=== PATIENT | female | born 1975 | race American Indian/Alaskan Native ===

== ENCOUNTER 2025-03-23 06:20 | Day surgery (SDC) | payer OTHER ==
[2025-03-20 10:49] LABS: BASOPHILS # (AUTO) 0.1 X10'3 (0-0.2); BASOPHILS % (AUTO) 0.8 % (0-1); EOSINOPHILS # (AUTO) 0.3 X10'3 (0-0.9); EOSINOPHILS % (AUTO) 3.7 % (0-6); LYMPHOCYTES # (AUTO) 2.5 X10'3 (1.1-4.8); LYMPHOCYTES % (AUTO) 30.7 % (21-51); MEAN CORPUSCULAR HEMOGLOBIN 29.9 PG (27.0-31.0); MEAN CORPUSCULAR HGB CONC 33.5 g/dL (33.0-36.5); MEAN CORPUSCULAR VOLUME 89.4 FL (78-98); MEAN PLATELET VOLUME 8.4 FL (7.4-10.4); MONOCYTES # (AUTO) 0.4 X10'3 (0-0.9); MONOCYTES % (AUTO) 4.8 % (2-12); NEUTROPHILS # (AUTO) 4.9 X10'3 (1.8-7.7); PRE OP HEMATOCRIT 40.9 % (35.0-45.0); PRE OP HEMOGLOBIN 13.7 g/dL (12.0-16.0); PRE OP PLATELET COUNT 264 X10'3 (140-440); PRE OP WHITE BLOOD COUNT 8.2 10'3 (4.8-10.8); RED BLOOD COUNT 4.57 X10'6 (4.20-5.60); RED CELL DISTRIBUTION WIDTH 13.4 % (11.5-14.5)
--- NOTE | 2025-03-20 10:52 | ELECTROCARDIOGRAPH REPORT ---
[facility] Test Date: 2025-03-20 Test Time: 10:50:01 Pat Name: GOLDY SPRAGUE Department: [facility]-PRE-OP Patient ID: [id number] Room: Gender: F Commodity Industry Analyst: MIKKI : 1975 Requested By: ZARINA THOMSON Order Number: [id number] Reading MD: Dr. STANFORD Blandon Measurements Intervals [place] Rate: 65 P: 64 ME: 155 QRS: 80 QRSD: 99 T: 57 QT: 396 QTc: 412 Interpretive Statements Sinus rhythm Electronically Signed On 03-20-2025 19:50:[address] STANFORD Blandon Please click the below link to view image of tracing.
[2025-03-20 10:58] LABS: ALBUMIN 3.9 G/DL (3.4-5.0); ALBUMIN/GLOBULIN RATIO 1.3 (1.1-1.5); ALKALINE PHOSPHATASE 76 IU/L (46-116); BLOOD UREA NITROGEN 18 MG/DL (7-18); CALCIUM 9.3 MG/DL (8.5-10.1); CHLORIDE 105 MMOL/L (99-107); PRE OP ALT 26 U/L (30-65); PRE OP ANION GAP 8 (8-16); PRE OP AST 16 U/L (10-37); PRE OP BILIRUB, TOTAL 0.4 MG/DL (0.0-1.0); PRE OP GLUCOSE 87 MG/DL (70-104); PRE OP POTASSIUM 4.7 MMOL/L (3.4-5.1); PRE OP SODIUM 141 MMOL/L (135-145); TOTAL CARBON DIOXIDE 27.7 MMOL/L (24-32); TOTAL PROTEIN 6.8 G/DL (6.4-8.2); eGFR 47 ML/MIN
[2025-03-23] VITALS (8 sets, daily range): BP systolic 89–104; BP diastolic 49–68; PULSE 46–61; RESP 8–16; TEMP 97.2; O2SAT 96–100
[~2025-03-23] VITALS: Ht 162.6 cm; Wt 70.0 kg
[2025-03-23] MEDS: ceFAZolin 2gm in dextrose, iso 50 ML IV ONE (05:30)
[~2025-03-23 06:20] MED LIST: CHOL100046 PO; GABA300C PO; LISI10TA27 PO; MELA5TAB21 PO; METF-438 PO; PHEN-434 PO; PRAZ1CAP5 PO; QUET300T5 PO; albuterol 2.5 MG/3 ML nebule NEB ONE
[2025-03-23] MEDS ORDERED: BUPIVAcaine/PF 2.5mg/ml (0.25%) 10ml vial ONE (07:09)
[2025-03-23] MEDS ORDERED: LIDOcaine 2% (20mg/ml) 5ml vial ONE (07:09)
[2025-03-23] MEDS ORDERED: HYDROmorphone/PF 0.2 MG/ML SYRINGE IV PRN ×2 (07:50)
[2025-03-23] MEDS ORDERED: morphine 4 MG/ML inj SYRINge IV PRN (07:50)
[2025-03-23] MEDS ORDERED: proCHLORperazine 10 MG/2 ml inj IV PRN (07:50)
[2025-03-23] MEDS ORDERED: acetaminophen 1,000mg/100ml IV 100 ML IV PRN (07:50)
[2025-03-23] MEDS ORDERED: labetalol 20mg/4ml (5mg/ml) syringe IV PRN (07:50)
[2025-03-23] MEDS ORDERED: ondansetron/PF 4mg/2ml inj IV PRN (07:50)
[2025-03-23] MEDS ORDERED: meperidine/PF 25mg/ml syringe IV PRN (07:50)
[2025-03-23] MEDS ORDERED: ringers solution, lacted 1,000 ML IV SCH (07:50)
[2025-03-23] MEDS ORDERED: morphine 2 MG/ML inj. syringe IV PRN (07:50)
[2025-03-23] MEDS ORDERED: hydrALAZINE 20mg/ml inj. IV PRN (07:50)
[2025-03-23] MEDS: famotidine 20mg tablet PO ONE (07:57)
[2025-03-23] MEDS: ringers solution, lacted 1,000 ML IV SCH (07:57)
[2025-03-23] MEDS ORDERED: fentaNYL/PF 50MCG/1 ML 2ML syringe ONE (09:41)
[2025-03-23] MEDS ORDERED: midazolam 1 mg/ML 2ml injection ONE (09:42)
[2025-03-23] MEDS ORDERED: propofol inj 20 ML IV ONE ×2 (09:54→09:55)
[2025-03-23] MEDS ORDERED: LIDOcaine 0.5% (5mg/ml) 50ml vial ONE (09:55)
--- NOTE | 2025-03-23 15:51 | OPERATIVE REPORT ---
Operative Report Providers to ~ Date of Procedure: March 23, 2025 Pre-Operative Diagnosis: Right carpal cubital tunnel middle trigger finger Post-Operative Diagnosis Right wrist carpal tunnel syndrome, right elbow cubital tunnel syndrome, right middle finger trigger finger Procedure Performed Right wrist endoscopic carpal tunnel release, right ulnar neuroplasty at elbow with in-situ decompression, incision tendon sheath A1 venu right middle finger Surgeon: Landry Anderson MD Automation Tender None Anesthesiologist: Viridiana Randolph Type of Anesthesia: Regional Findings: Estimated Blood Loss: None Specimen Removed: None Description of Procedure: The patient is a 49-year-old woman with right carpal and cubital tunnel syndrome as well as right middle trigger finger refractory to nonsurgical treatment. Surgery is indicated to relieve symptoms. Risks and benefits were discussed with the patient and he was brought to the operating room where the block was given. The arm was prepped and draped in usual manner. A transverse incision was made at the wrist crease ulnar to the palmaris longus. A distally based U shaped flap was raised in the forearm fascia and the scope was inserted into the carpal canal. The cutting blade was deployed up against the underside of the ligament and the scope was drawn proximally. The ligament edges retracted and the scope was removed. The flap was transected and the fascia proximal to the incision was divided a short distance using the blunt scissor tips. The incision was closed with nylon suture after irrigation. A longitudinal incision was made over the flexor tendon at the distal palm over the path of the middle finger tendon. Dissection was taken down to the tendon sheath were small ganglion was encountered. That was excised and then the A1 venu was incised longitudinally. The tendons were inspected and noted to be free of any lesions. The incision was irrigated and closed with nylon suture. The elbow was addressed with a an incision posterior to the medial epicondyle with blunt dissection down to the cubital tunnel. The nerve was palpated in the ulnar groove and carefully unroofed at that level. While protecting the nerve the fascia was incised and decompression was done with a distance of 5 cm above and below the elbow. The nerve was stable in the ulnar groove. Small bleeders were cauterized and thorough irrigation was done. The incision was then closed in layers. Marcaine was injected at both sites and sterile dressings were applied. The tourniquet was released the hand perfused well The patient was taken to the recovery room in stable condition and tolerated the procedure well LANDRY ANDERSON Jr., MD March 23, 2025 15:51
== END 2025-03-23 11:18 | disposition home or self-care (01) ==
LOC: PAS 06:20
PROVIDERS: ATTEND Orthopaedic Surgery Hand Surgery
DX: G56.21 Lesion of ulnar nerve, right upper limb (principal); G56.01 Carpal tunnel syndrome, right upper limb; M65.331 Trigger finger, right middle finger; E11.9 Type 2 diabetes mellitus without complications; G47.33 Obstructive sleep apnea (adult) (pediatric); F42.9 Obsessive-compulsive disorder, unspecified; F20.9 Schizophrenia, unspecified; F43.10 Post-traumatic stress disorder, unspecified; F32.A Depression, unspecified; I10 Essential (primary) hypertension; Z79.899 Other long term (current) drug therapy; F17.210 Nicotine dependence, cigarettes, uncomplicated; Z98.890 Other specified postprocedural states; Z88.6 Allergy status to analgesic agent; Z88.0 Allergy status to penicillin; Z90.49 Acquired absence of other specified parts of digestive tract; Z88.2 Allergy status to sulfonamides
CPT/HCPCS: 26055; 29848; 36415; 64718; 80053; 82948; 85025; 93005; J0690; J2003; J2250; J2704; J3010; J3490; J7030; J7120; Z7506; Z7512; A4215; A6449; A7000

== ENCOUNTER 2025-05-04 05:24 | Day surgery (SDC) | payer OTHER ==
[2025-04-27 11:13] LABS: BASOPHILS % (AUTO) 0.5 % (0-1); EOSINOPHILS # (AUTO) 0.4 X10'3 (0-0.9); EOSINOPHILS % (AUTO) 4.5 % (0-6); LYMPHOCYTES # (AUTO) 2.6 X10'3 (1.1-4.8); LYMPHOCYTES % (AUTO) 30.7 % (21-51); MEAN CORPUSCULAR HEMOGLOBIN 30.2 PG (27.0-31.0); MEAN CORPUSCULAR HGB CONC 33.7 g/dL (33.0-36.5); MEAN CORPUSCULAR VOLUME 89.6 FL (78-98); MEAN PLATELET VOLUME 8.8 FL (7.4-10.4); MONOCYTES # (AUTO) 0.4 X10'3 (0-0.9); MONOCYTES % (AUTO) 4.8 % (2-12); NEUTROPHILS % (AUTO) 59.5 % (42-75); PRE OP HEMATOCRIT 37.3 % (35.0-45.0); PRE OP HEMOGLOBIN 12.6 g/dL (12.0-16.0); PRE OP PLATELET COUNT 205 X10'3 (140-440); PRE OP WHITE BLOOD COUNT 8.4 10'3 (4.8-10.8); RED BLOOD COUNT 4.16 X10'6 (4.20-5.60); RED CELL DISTRIBUTION WIDTH 13.6 % (11.5-14.5)
[2025-04-27 11:29] LABS: ALBUMIN 3.5 G/DL (3.4-5.0); ALBUMIN/GLOBULIN RATIO 1.2 (1.1-1.5); ALKALINE PHOSPHATASE 72 IU/L (46-116); BLOOD UREA NITROGEN 17 MG/DL (7-18); BUN/CREATININE RATIO 15.3 (10.0-20.0); CALCIUM 9.3 MG/DL (8.5-10.1); CHLORIDE 108 MMOL/L (99-107); CREATININE 1.11 MG/DL (0.40-0.90); PRE OP ALT 22 U/L (30-65); PRE OP ANION GAP 8 (8-16); PRE OP AST 13 U/L (10-37); PRE OP BILIRUB, TOTAL 0.3 MG/DL (0.0-1.0); PRE OP GLUCOSE 86 MG/DL (70-104); PRE OP POTASSIUM 4.2 MMOL/L (3.4-5.1); PRE OP SODIUM 143 MMOL/L (135-145); TOTAL CARBON DIOXIDE 27.5 MMOL/L (24-32); TOTAL PROTEIN 6.5 G/DL (6.4-8.2); eGFR 52 ML/MIN
[~2025-05-04] VITALS: Ht 162.6 cm; Wt 72.8 kg
[2025-05-04] VITALS (10 sets, daily range): BP systolic 90–120; BP diastolic 51–74; PULSE 51–61; RESP 10–18; TEMP 97.1; O2SAT 94–100
[~2025-05-04 05:24] MED LIST changes: -MELA5TAB21 PO; -PHEN-434 PO; +QUET300T20 PO; -QUET300T5 PO; +QUET50TA24 PO; -albuterol 2.5 MG/3 ML nebule NEB ONE
[2025-05-04] MEDS ORDERED: ringers solution, lactated 500 ML IV SCH (05:30)
[2025-05-04] MEDS: ringers solution, lacted 1,000 ML IV SCH (05:59)
[2025-05-04] MEDS: famotidine 20mg tablet PO ONE (05:59)
[2025-05-04] MEDS ORDERED: BUPIVAcaine 2.5mg/ml inj 50ml vial (contains preservative) ONE (06:02)
[2025-05-04] MEDS ORDERED: BUPIVAcaine/PF 2.5mg/ml (0.25%) 10ml vial ONE (06:02)
[2025-05-04] MEDS ORDERED: LIDOcaine 2% (20mg/ml) 5ml vial ONE ×2 (06:02)
[2025-05-04] MEDS: CLINDAMYCIN 600mg IN NS 50ML 50 ML IV ONE (06:18)
[2025-05-04] MEDS ORDERED: clindamycin 600mg/D5W 50ml 50 ML IV ONE (06:40)
[2025-05-04] MEDS ORDERED: morphine 2 MG/ML inj. syringe IV PRN (07:15)
[2025-05-04] MEDS ORDERED: ondansetron/PF 4mg/2ml inj IV PRN (07:15)
[2025-05-04] MEDS ORDERED: ringers solution, lacted 1,000 ML IV SCH (07:15)
[2025-05-04] MEDS ORDERED: fentaNYL/PF 50MCG/1 ML 2ML syringe IV PRN ×2 (07:15)
[2025-05-04] MEDS ORDERED: morphine 4 MG/ML inj SYRINge IV PRN (07:15)
[2025-05-04] MEDS ORDERED: MIDAZolam 1mg/ml 10ml vial ONE (07:18)
[2025-05-04] MEDS ORDERED: fentaNYL/PF 50MCG/1 ML 2ML syringe ONE (07:18)
[2025-05-04] MEDS ORDERED: ketorolac trometh 30MG/ML vial 30 MG/ML VIAL ONE (07:19)
[2025-05-04] MEDS ORDERED: LIDOcaine 1%/PF 5ML 10 MG/ML VIAL ONE (07:19)
[2025-05-04] MEDS ORDERED: LIDOcaine 0.5% (5mg/ml) 50ml vial ONE (07:19)
[2025-05-04] MEDS ORDERED: propofol inj 20 ML IV ONE (07:57)
--- NOTE | 2025-05-04 14:14 | OPERATIVE REPORT ---
Operative Report Providers to ~ Date of Procedure: May 04, 2025 Pre-Operative Diagnosis: Left CTS cubital tunnel trigger finger Post-Operative Diagnosis Left wrist carpal tunnel syndrome, left elbow cubital tunnel syndrome, left index middle and ring finger trigger fingers Procedure Performed Left wrist endoscopic carpal tunnel release, left ulnar neuroplasty at elbow with in-situ decompression, left index finger trigger release, left middle finger trigger release, left ring finger trigger release Surgeon: Landry Anderson MD Conservation Technician None Anesthesiologist: Malik Barrios Type of Anesthesia: Regional Findings: Estimated Blood Loss: None Specimen Removed: None Description of Procedure: The patient is a 49-year-old woman with left carpal and cubital tunnel syndrome as well as left index middle and ring trigger finger refractory to nonsurgical treatment. Surgery is indicated to relieve symptoms. She initially was not scheduled to have cubital tunnel release but in the time coming up to surgery she did complain that her elbow symptoms were worsening so that was added to the consent. Risks and benefits were discussed with the patient and he was brought to the operating room where the block was given. The left arm was prepped and draped in usual manner. A transverse incision was made at the wrist crease ulnar to the palmaris longus. A distally based U shaped flap was raised in the forearm fascia and the scope was inserted into the carpal canal. The cutting blade was deployed up against the underside of the ligament and the scope was drawn proximally. The ligament edges retracted and the scope was removed. The flap was transected and the fascia proximal to the incision was divided a short distance using the blunt scissor tips. The incision was closed with nylon suture after irrigation. Three longitudinal incisions were made over the flexor tendon at the distal palm over the path of the index middle and ring finger tendon. Dissection was taken down to the tendon sheaths The A1 venu was incised longitudinally at each digit. The tendons were inspected and noted to be free of any lesions. The incisions were irrigated and closed with nylon suture. The left elbow was addressed with a an incision posterior to the medial epicondyle with blunt dissection down to the cubital tunnel. The nerve was palpated in the ulnar groove and carefully unroofed at that level. While protecting the nerve the fascia was incised and decompression was done with a distance of 5 cm above and below the elbow. The nerve was stable in the ulnar groove. Small bleeders were cauterized and thorough irrigation was done. The incision was then closed in layers. Marcaine was injected at both sites and sterile dressings were applied. The tourniquet was released the hand perfused well The patient was taken to the recovery room in stable condition and tolerate d the procedure well LANDRY ANDERSON Jr., MD May 04, 2025 14:14
== END 2025-05-04 09:33 | disposition home or self-care (01) ==
LOC: PAS 05:24 → EDUNIT# 08:00 → PAS 09:33
PROVIDERS: ATTEND Orthopaedic Surgery Hand Surgery
DX: G56.02 Carpal tunnel syndrome, left upper limb (principal); G56.22 Lesion of ulnar nerve, left upper limb; M65.322 Trigger finger, left index finger; M65.332 Trigger finger, left middle finger; M65.342 Trigger finger, left ring finger; K76.0 Fatty (change of) liver, not elsewhere classified; F32.A Depression, unspecified; F41.9 Anxiety disorder, unspecified; F43.10 Post-traumatic stress disorder, unspecified; Z79.899 Other long term (current) drug therapy; I10 Essential (primary) hypertension; Z98.890 Other specified postprocedural states; F17.210 Nicotine dependence, cigarettes, uncomplicated; Z88.0 Allergy status to penicillin; Z88.6 Allergy status to analgesic agent; F20.9 Schizophrenia, unspecified; G62.9 Polyneuropathy, unspecified
CPT/HCPCS: 26055; 29848; 36415; 64718; 80053; 82948; 85025; J1885; J2003; J2250; J2704; J3010; J3490; J7030; J7120; Z7506; Z7512; A4215; A6449; A7000

== ENCOUNTER 2025-10-12 10:19 | Day surgery (SDC) | payer OTHER ==
--- NOTE | 2025-10-05 14:26 | ELECTROCARDIOGRAPH REPORT ---
[facility] Test Date: 2025-10-05 Test Time: 14:24:21 Pat Name: GOLDY SPRAGUE Department: [facility]-PRE-OP Patient ID: [id number] Room: Gender: F Senior Staff Specialized Employment: : 1975 Requested By: ZARINA THOSMON Order Number: [id number] Reading MD: Dr. Bradley Randolph Measurements Intervals [place] Rate: 72 P: 70 [place]: 150 QRS: 81 QRSD: 88 T: 55 QT: 376 QTc: 412 Interpretive Statements Sinus rhythm Electronically Signed On 10-07-2025 13:17:[address] Bradley Randolph Please click the below link to view image of tracing.
[2025-10-05 15:00] LABS: MEAN PLATELET VOLUME 8.8 FL (7.4-10.4); PRE OP HEMATOCRIT 35.5 % (35.0-45.0); PRE OP HEMOGLOBIN 12.1 g/dL (12.0-16.0); PRE OP PLATELET COUNT 219 X10'3 (140-440); PRE OP WHITE BLOOD COUNT 8.5 10'3 (4.8-10.8); RED CELL DISTRIBUTION WIDTH 13.4 % (11.5-14.5)
[2025-10-05 15:32] LABS: CREATININE 1.13 MG/DL (0.40-0.90); PRE OP ALT 17 U/L (30-65); PRE OP ANION GAP 7 (8-16); PRE OP AST 14 U/L (10-37); PRE OP BILIRUB, TOTAL 0.4 MG/DL (0.0-1.0); PRE OP GLUCOSE 89 MG/DL (70-104); PRE OP POTASSIUM 4.1 MMOL/L (3.4-5.1); PRE OP SODIUM 132 MMOL/L (135-145); TOTAL CARBON DIOXIDE 28.6 MMOL/L (24-32); eGFR 51 ML/MIN
[~2025-10-12] VITALS: Ht 162.6 cm; Wt 65.8 kg
[2025-10-12] VITALS (7 sets, daily range): BP systolic 80–110; BP diastolic 49–68; PULSE 56–69; RESP 7–17; TEMP 97.1; O2SAT 99–100
[2025-10-12] MEDS: clindamycin-Cleocin 900mg/D5W 50 ML IV ONE (05:30)
[~2025-10-12 10:19] MED LIST changes: +BUPIVAcaine 2.5mg/ml inj 50ml vial (contains preservative) ONE; +CHOL500050 PO; +MELA5TAB12 PO; +MULT-1085 PO; +PHEN-434 PO; -PRAZ1CAP5 PO; +PRAZ2CAP2 PO; -QUET300T20 PO; -QUET50TA24 PO; +XANO1CAP4 PO
[2025-10-12] MEDS: ringers solution, lacted 1,000 ML IV SCH (11:02)
[2025-10-12] MEDS ORDERED: fentaNYL/PF 50MCG/1 ML 2ML syringe ONE (11:39)
[2025-10-12] MEDS ORDERED: midazolam 1 mg/ML 2ml injection ONE ×2 (11:39→12:45)
[2025-10-12] MEDS ORDERED: LIDOcaine 0.5% (5mg/ml) 50ml vial ONE (11:40)
[2025-10-12] MEDS ORDERED: propofol inj 20 ML IV ONE (11:42)
--- NOTE | 2025-10-14 06:57 | OPERATIVE REPORT ---
Operative Report Providers to ~ Date of Procedure: Oct 12, 2025 Pre-Operative Diagnosis: Failed ulnar neuroplasty left elbow with a subluxation Post-Operative Diagnosis SAME as PRE-Op Procedure Performed Revision ulnar neuroplasty left elbow with medial epicondylectomy Surgeon: Landry Anderson MD Cellulose Insulation Helper None Anesthesiologist: Morgan Long Type of Anesthesia: Regional Findings: Estimated Blood Loss: None Specimen Removed: None Description of Procedure: The patient is a 49-year-old woman who previously had an in-situ decompression of the ulnar nerve of the left elbow. Some time in the postoperative. She noted subluxation when she flex the elbow causing pain and ulnar nerve symptoms. Surgery is indicated to improve function. Risks and benefits were discussed with the patient some of the risks include wound healing issues. Nerve injury and recurrent subluxation. She agreed to proceed. Once in the operating room the block was given. The arm was prepped and draped in usual manner. The previous surgical incision was incised and extended proximally and distally. Flaps were elevated in the ulnar nerve was identified. It was freed up proximally and distally. A vessel loop was placed around the nerve to protected. An osteotome was then used to remove the medial epicondyle taking care not to disrupt the collateral ligaments. Bone edges were smoothed over using the rongeur and then treated with the bone wax. The soft tissue that had been opened in order to access the bone was then repaired over the bone. While flexing the elbow the nerve smoothly slid over the remaining portion of the medial elbow. The incision was then irrigated and closed in layers. Marcaine was injected in a sterile dressing was applied. The tourniquet was released the hand perfused well and she was taken to recovery room in stable condition LANDRY ANDERSON Jr., MD Oct 14, 2025 06:57
== END 2025-10-12 13:46 | disposition home or self-care (01) ==
LOC: PAS 10:19
PROVIDERS: ATTEND Orthopaedic Surgery Hand Surgery
DX: G56.23 Lesion of ulnar nerve, bilateral upper limbs (principal); S53.102 Unspecified subluxation of left ulnohumeral joint; E11.9 Type 2 diabetes mellitus without complications; F41.9 Anxiety disorder, unspecified; F32.A Depression, unspecified; F42.9 Obsessive-compulsive disorder, unspecified; F43.10 Post-traumatic stress disorder, unspecified; G89.29 Other chronic pain; I10 Essential (primary) hypertension; M47.22 Other spondylosis with radiculopathy, cervical region; X58.XXXD Exposure to other specified factors, subsequent encounter; Z87.891 Personal history of nicotine dependence; Z85.41 Personal history of malignant neoplasm of cervix uteri; Z90.49 Acquired absence of other specified parts of digestive tract; Z88.0 Allergy status to penicillin; Z88.5 Allergy status to narcotic agent; Z79.84 Long term (current) use of oral hypoglycemic drugs
CPT/HCPCS: 25150; 36415; 64718; 80053; 85025; 93005; J2250; J2704; J3010; J3490; J7030; J7120; Z7506; Z7512; A4215; A4618; A6446; A6449; A7000

== ENCOUNTER 2025-10-14 11:56 | Emergency (ER) | payer OTHER ==
[~2025-10-14] VITALS: Ht 162.6 cm; Wt 65.5 kg
[~2025-10-14 11:56] MED LIST changes: -BUPIVAcaine 2.5mg/ml inj 50ml vial (contains preservative) ONE
--- NOTE | 2025-10-14 12:10 | ELECTROCARDIOGRAPH REPORT ---
[facility] Test Date: 2025-10-14 Test Time: 12:10:01 Pat Name: GOLDY SPRAGUE Department: EMERGENCY ROOM Patient ID: [id number] Room: Gender: F Wire Stitcher Machine: LAVERN : 1975 Requested By: JR TRIMBLE Order Number: [id number] Reading MD: Dr. STANFORD Blandon Measurements Intervals [place] Rate: 82 P: 74 [place]: 135 QRS: 98 QRSD: 97 T: 7 QT: 392 QTc: 458 Interpretive Statements Sinus rhythm Borderline right axis deviation Artifact in lead(s) V3 and baseline wander in lead(s) V3 Electronically Signed On 10-16-2025 16:51:[address] STANFORD Blandon Please click the below link to view image of tracing.
[2025-10-14 12:27] LABS: MEAN PLATELET VOLUME 8.1 FL (7.4-10.4); RED CELL DISTRIBUTION WIDTH 13.1 % (11.5-14.5)
--- NOTE | 2025-10-14 12:39 | RADIOLOGY REPORT ---
CHEST RADIOGRAPH Indication: CP Technique: DI CHEST,SINGLE VIEW Comparison: None FINDINGS: The cardiac silhouette is unremarkable. The lungs demonstrate no pulmonary airspace consolidation. The pulmonary vasculature is unremarkable. There is no pleural effusion. There is no pneumothorax. IMPRESSION: No pulmonary airspace consolidation.
[2025-10-14 12:54] LABS: CREATININE 1.04 MG/DL (0.40-0.90); PRO BRAIN NATRIURETIC PEPTIDE 164 PG/ML (0-125); TOTAL CARBON DIOXIDE 31.0 MMOL/L (24-32); eCRCL 55 ML/MIN; eGFR 56 ML/MIN
--- NOTE | 2025-10-14 13:19 | Physician Documentation ---
History of Present Illness ~ Chief Complaint: Shortness of Breath Stated Complaint: SOB Time Seen by MD: 12:56 HPI This is a 49-year-old female with a history of hypertension, extensive psychiatric history including schizophrenia and hallucination presents to the ER with chief complaint of slurred speech and confusion. The patient's daughter was confused about her slurred speech and confusion and wanted her to get checked in the ER. Her blood pressure at arrival was 180/98 mmHg. Patient endorses bilateral weakness associated with her confusion during the episode. Currently has no focal neurological deficits. She also endorses two syncopal episodes today and one in last week, however she did not hit her head and is not on blood thinners. Patient endorses that she has been feeling weak since the last one month and was found to have a UTI three weeks ago and was given antibiotics for five days which made her nauseous and feels sick. She also endorses having multiple psychiatric issues including hallucinations and was on Seroquel for 30 years which was recently changed to Cobanfy in April. Medication Reconciliation Allergies: Coded Allergies: Penicillins (Verified Allergy, Severe, RASH/VOMITING/ANAPHYLAXIS, 10/14/25) codeine (Verified Allergy, Severe, RASH, THROAT SWELLING, 10/14/25) oxycodone (Verified Allergy, Severe, RASH/VOMITING/ANAPHYLAXIS, 10/14/25) Uncoded Allergies: FLU SHOT (Allergy, Unknown, ANAPHYLAXIS, 03/20/25) NUTS (Allergy, Unknown, THROAT ITCHY AND SWELLS, 03/20/25) ORANGE DYE (Allergy, Unknown, ITCHY THROAT, 03/20/25) PORK (Allergy, Unknown, VOMIT, 03/20/25) Scheduled Cholecalciferol (Vitamin D3) (Vitamin D3), 1 CAP PO DAILY, (Reported) Cholecalciferol (Vitamin D3) (Vitamin D3), 1 CAP PO DAILY, (Reported) Gabapentin (Neurontin), 1 CAP PO BIDBL, (Reported) Gabapentin (Neurontin), 600 MG PO HS, (Reported) Lisinopril (Lisinopril), 1 TAB PO DAILY, (Reported) Melatonin (Melatonin), 1 TAB PO HS, (Reported) Metformin HCl (Metformin HCl), 1 TAB PO Q12H, (Reported) Multivitamin (Multi Vitamin Daily), 1 TAB PO DAILY, (Reported) Phendimetrazine Tartrate (Phendimetrazine Tartrate), 1 TAB PO Q12H, (Reported) Prazosin Hcl (Prazosin Hcl), 1 CAP PO HS, (Reported) Xanomeline Tart/Trospium Chlor (Cobenfy 100 mg-20 mg Capsule), 1 CAP PO BID, (Reported) Review of Systems Constitutional Constitutional: Generalized weakness in bilateral lower extremities. No fever, chills, dizziness, weight gain or loss Eyes: No pain, erythema, discharge, blurring of vision ENT: No sore throat, epistaxis, tinnitus Cardiovascular: No palpitations, syncope, lower extremity edema, paroxysmal nocturnal dyspnea Respiratory: No hemoptysis Gastrointestinal: Normal appetite. No nausea, vomiting, diarrhea, constipation, hematemesis, abdominal pain, bloating, melena or fresh blood Genitourinary: No frequency, urgency, nocturia, hematuria or dysuria Musculoskeletal: No arthralgias or myalgias Integumentary: No change in skin, hair, nails. No swelling, bruising, abrasions Neurologic: Positive for headache, no neck pain, numbness or tingling of the extremities. Psychiatric positive for hallucinations.: No delusions, depression, loss of interest in normal activity or change in sleep pattern, suicidal ideations Endocrine: No fatigue, weakness, polydipsia, polyuria, change in appetite, heat or cold intolerance, sweating, dry skin Hematological: No bleeding, petechiae, bruising Allergies: No asthma or urticaria Physical Exam Vital Signs: Temperature: 98.7, Source: Oral, Heart Rate: 82, Respiratory Rate: 18, BP: 181/98, Pulse Oximetry: 99, Weight: 65.500 Oxygen Flow Rate: 0 Physical Exam General: Awake and Alert, no acute distress. HEENT: Conjunctiva pink, Sclera clear, Mucus Membranes moist Neck: Supple without masses and tenderness. Resp: Unlabored. Equal breath sounds bilaterally. Heart: Regular rhythm, normal S1 and S2, no rub, murmur or gallop, muffled heart sounds. Abdomen: Soft and non tender no organomegaly. Normal bowel sounds x4 quadrant normoactive. No guarding or rigidity. Extremities: Normal ROM, no swelling, nontender. No cyanosis,clubbing or edema. RESTAURANT RECRUITER: No gross motor or sensory abnormalities. Cranial nerve examination is normal Skin: Warm and Dry. Progress Progress Note The patient is a 12 lead EKG was interpreted by me as being a sinus rhythm with a normal axis rate of [address]-elevation or ST-depression interpreted by me as a normal EKG time of interpretation was 13 Results/Orders Results/Orders Orders - MARTIN GREENE MD Chest,Single View (10/14/25 12:07) Monitor (10/14/25 12:07) Saline Lock (10/14/25 12:07) Oxygen (10/14/25 12:07) Completed Orders - MARTIN GREENE MD Chest,Single View (10/14/25 12:07) Cbc/Diff (10/14/25 12:07) BMP (10/14/25 12:07) PBNP (10/14/25 12:07) Electrocardiogram (10/14/25 12:07) Hs Troponin I W Calculations (10/14/25 12:07) Hs Troponin I W Calculations (10/14/25 14:07) Hs Troponin I W Calculations (10/14/25 15:07) Vital Signs 10/14/25 10/14/25 10/14/25 10/14/25 12:08 13:40 13:56 15:51 Temp 98.7 98.7 Pulse 82 77 82 Resp 18 17 18 12 B/P (MAP) 181/98 154/89 (110) 115/74 Pulse Ox 99 98 100 O2 Flow Rate 0 0 Laboratory Tests Test 10/14/25 12:19 10/14/25 14:08 10/14/25 14:32 10/14/25 15:05 White Blood Count 7.9 Red Blood Count 4.46 Hemoglobin 13.5 Hematocrit 40.1 Mean Corpuscular Volume 90.0 Mean Corpuscular Hemoglobin 30.4 Mean Corpuscular Hemoglobin Concent 33.7 Red Cell Distribution Width 13.1 Platelet Count 255 Mean Platelet Volume 8.1 Neutrophils (%) (Auto) 86.0 H Lymphocytes (%) (Auto) 10.3 L Monocytes (%) (Auto) 2.7 Eosinophils (%) (Auto) 0.7 Basophils (%) (Auto) 0.3 Neutrophils # (Auto) 6.8 Lymphocytes # (Auto) 0.8 L Monocytes # (Auto) 0.2 Eosinophils # (Auto) 0.1 Basophils # (Auto) 0.0 CBC Comment Sodium Level 139 Potassium Level 3.9 Chloride Level 102 Carbon Dioxide Level 31.0 Anion Gap 6 L Blood Urea Nitrogen 13 Creatinine 1.04 H Estimated GFR/1.73 m2 56 BUN/Creatinine Ratio 12.5 Glucose Level 121 H Calcium Level 9.2 Troponin I High Sensitivity 4 5 5 Pro-B-Type Natriuretic Peptide 164 H Albumin 4.0 Chemistry Comments Troponin I High Sens Percent Delta 25 0 Troponin I Hi Sens Absolute Change 1 0 Urine Specimen Description Cln catch midstream Urine Color Yellow Urine Clarity Clear Urine pH 6.0 Urine Specific Baxter 1.010 Urine Protein Negative Urine Glucose (UA) Negative Urine Ketones Negative Urine Occult Blood Negative Urine Nitrite Negative Urine Bilirubin Negative Urine Urobilinogen 0.2 Urine Leukocyte Esterase Negative Urine Culture Indicated Not ind Volume Urine Centrifuged 10 ml Urine Comment Urine Opiates Screen Positive Urine Methadone Screen Negative Urine Fentanyl Screen Negative Urine Barbiturates Screen Negative Urine Phencyclidine Screen Negative Urine Amphetamines Screen Negative Urine Benzodiazepines Screen Negative Urine Cocaine Screen Negative Urine Cannabinoids Screen Negative Drug Screen Comment EKG/XRAY/CT/US/VASC/MRI CT : Impression Patient: GOLYD SPRAGUE Medical Record: [id number] [facility] : 1975, Age: 49 Sex: Female Location: ER Patient Status: [facility] ER Service Date/Time: 10/14/251314 Ordering Physician: ELIZABETH CARMEN Exam: CT HEAD EXAM: CT CT HEAD INDICATION: Slurred speech, confusion COMPARISON: None TECHNIQUE: CT of the head without intravenous contrast. Radiation Dose Information: CT Dose: CTDI volume is 52 mGy. Dose-length product is 874 mGy*cm The dose indicators for CT are the volume Computed Tomography (CT) Dose Index (CTDIvol) and the Dose Length Product (DLP), and are measured in units of mGy and mGy-cm, respectively. These indicators are not patient dose, but values generated from the CT scanner acquisition factors. The report includes radiation exposure data for exposures received during this examination. Findings: Scattered hypoattenuation in the periventricular and subcortical white matter, suggestive of chronic microvascular disease. The ventricles and sulci are mildly enlarged, compatible with generalized parenchymal volume loss. There is no mass- effect, hemorrhage, midline shift, or abnormal extra-axial fluid collection visible. No calvarial fracture. Essentially clear visualized paranasal sinuses. Mastoid air cells are clear. IMPRESSION: No acute intracranial hemorrhage or mass effect. Electronically Signed by:FLASH FERRER MD Date & Time: 10/14/251418 Dictated by: FLASH FERRER MD Dictation date and time: 10/14/251418 Primary Care Provider: NO PRIMARY CARE PROVIDER cc: ELIZABETH CARMEN, RES ~ Medical Decision Making Additional information obtaine: other Findings Laboratory workup was unremarkable, EKG showed slightly prolonged QTC of 453 millisecond, CT head showed no acute intracranial abnormalities. Patient received a migraine cocktail after which her headache improved. Patient is safe to be discharged but needs outpatient evaluation with Cardiology and Neurology for her dizziness spells and headaches. UA pending Differential Dx:Considerations: Include: dehydration, Delirium Tr., DKA, encephalopathy, hypercalcemia, HHNC, hypoglycemia, hypernatremia, hyponatremia, hypoxia, postictal, closed head injury, C-spine injury, CVA, mass lesion, subarachnoid hemorrhage, drug overdose, encephalopathy, ETOH intoxication, medication toxicity, infection - meningitis, infection - sepsis, infection - UTI, heart failure, renal failure, respiratory failure, hyperthermia, hypothermia, other Departure Disposition: 01 HOME / SELF CARE / HOMELESS Impression: Primary Impression: Confusion Additional Impression: Headache Qualified Codes: R51.9 - Headache, unspecified Discharge Instructions: Syncope, Adult, [id number] Additional Instructions: Follow up with your PCP, establish care with a communication consultant and neurologist for outpatient syncope workup. Continue a strict blood pressure monitoring and maintain a blood pressure diary and discussed with your PCP. Return to the ER if you have weakness or recurrent falls. Referrals: NO PRIMARY CARE PROVIDER (PCP) Education Educated: Patient Educated regarding: need for follow up Additional Comment Seen with PA/COMPLIANCE REVIEW OFFICER The patient was seen with the resident physician. I have reviewed the resident's note and agree with the use has been plan and note as written. I have also independently examined the patient. I have supervised all aspects of the residents care. The patient presents with a an episode of confusion some headache that has been transient she has had this in the past. The patient is at her neurologic baseline at this point there was no focal neurologic deficits in her workup was essentially unremarkable. The patient's prior hospitalizations has been reviewed the patient's EKG was interpreted by me her chest x-ray was interpreted by me as showing a normal-appearing chest x-ray with normal mediastinum normal cardiac silhouette and normal-appearing bony structures I interpreted as a normal chest x-ray. The patient's pulse oximetry was interpreted as normal and adequate and her court recording monitor was interpreted as a sinus rhythm the patient will be discharged Signature Scribe Signature: No scribe Attestation: PGY2 resident attestation: Patient was seen and examined at the bedside with the attending physician Dr.ohlfs Elizabeth Portillo MD PGY 2 internal medicine resident The note accurately reflects work and decisions made by me.Martin Greene MD 10/15/25 13:37 ELIZABETH CARMEN, RES Oct 14, 2025 13:19 MARTIN GREENE MD Oct 14, 2025 15:32
--- NOTE | 2025-10-14 14:21 | RADIOLOGY REPORT ---
EXAM: CT CT HEAD INDICATION: Slurred speech, confusion COMPARISON: None TECHNIQUE: CT of the head without intravenous contrast. Radiation Dose Information: CT Dose: CTDI volume is 52 mGy. Dose-length product is 874 mGy*cm The dose indicators for CT are the volume Computed Tomography (CT) Dose Index (CTDIvol) and the Dose Length Product (DLP), and are measured in units of mGy and mGy-cm, respectively. These indicators are not patient dose, but values generated from the CT scanner acquisition factors. The report includes radiation exposure data for exposures received during this examination. Findings: Scattered hypoattenuation in the periventricular and subcortical white matter, suggestive of chronic microvascular disease. The ventricles and sulci are mildly enlarged, compatible with generalized parenchymal volume loss. There is no mass- effect, hemorrhage, midline shift, or abnormal extra-axial fluid collection visible. No calvarial fracture. Essentially clear visualized paranasal sinuses. Mastoid air cells are clear. IMPRESSION: No acute intracranial hemorrhage or mass effect.
[2025-10-14] MEDS: ketorolac trometh 15mg/ml vial 15 MG/ML ML IV ONE (14:32)
[2025-10-14] MEDS: metoclopramide 5 mg/ml inj IV ONE (14:33)
[2025-10-14 15:01] LABS: LEUKOCYTE ESTERASE ,URINE NEGATIVE (Neg); NITRITES, URINE NEGATIVE (Neg); OCCULT BLOOD,URINE NEGATIVE (Neg); UA COLLECTION TYPE CLN CATCH MIDSTREAM
[2025-10-14 15:22] LABS: URINE AMPHETAMINE SCREEN NEGATIVE (Neg); URINE BARBITUATE SCREEN NEGATIVE (Neg); URINE BENZODIAZEPINES SCREEN NEGATIVE (Neg); URINE CANNABINOID SCREEN NEGATIVE (Neg); URINE COCAINE SCREEN NEGATIVE (Neg); URINE METHADONE SCREEN NEGATIVE (Neg); URINE OPIATE SCREEN POSITIVE (Neg); URINE PHENCYCLIDINE SCREEN NEGATIVE (Neg)
[2025-10-14 15:51] VITALS: BP 115/74; PULSE 82; RESP 12; TEMP 98.7; O2SAT 100
== END 2025-10-14 15:53 | disposition home or self-care (01) ==
LOC: ER 11:57
DX: R41.0 Disorientation, unspecified (principal); R51.9 Headache, unspecified; I10 Essential (primary) hypertension; F20.9 Schizophrenia, unspecified; Z88.0 Allergy status to penicillin; Z88.5 Allergy status to narcotic agent; Z87.440 Personal history of urinary (tract) infections; Z79.899 Other long term (current) drug therapy
CPT/HCPCS: 36415; 70450; 71045; 80048; 80305; 81003; 83880; 84484; 85025; 93005; 96374; 96375; 99285; J1200; J1885; J2765